=== PATIENT | female | born 1970 | race African-American/Black ===

== ENCOUNTER 2016-09-28 12:08 | Inpatient (IN) | payer BC, OTHER ==
[2016-09-25 14:26] VITALS: BMI 48.0
--- NOTE | 2016-09-28 07:17 | HP ---
History & Physical Update - History History: No Change - Physical Physical: No Change - Assessment Assessment: No Change - Plan Plan: No Change (This is my first time meeting the patient. Introduced myself and informed the patient that I will be assisting Dr. Marcos for the procedure.)
[~2016-09-28 12:08] MED LIST: BUPIVACAINE HCL/PF 0.25% (2.5MG/ML) 10 ML VIAL IJ ONE; CEFAZOLIN 2 GM in DEXTROSE 5%-WATER - 100 ML IVPB ONE; GABAPENTIN 300 MG CAPSULE (FP) PO ONE; oxyCODONE HCL 10 MG SUSTAINED ACTING TABLET PO STA
[2016-09-28] MEDS ORDERED: MIDAZOLAM HCL 2 MG/2 ML SINGLE DOSE VIAL ONE ×2 (13:08)
[2016-09-28] MEDS ORDERED: ROCURONIUM BROMIDE 50 MG/5 ML VIAL ONE (13:24)
[2016-09-28] MEDS ORDERED: BUPIVACAINE HCL/PF 2.5 MG/ML - 30 ML VIAL IJ ONE (13:31)
[2016-09-28] MEDS ORDERED: LIDOCAINE 1%-EPI 1:100,000 30 ML MDV IJ ONE (13:31)
[2016-09-28] MEDS ORDERED: GUM MASTIC/STORAX/MSAL/ALCOHOL 1 DRP DROPSBTL MC ONE (14:22)
[2016-09-28] MEDS ORDERED: PROPOFOL 20 ML ONE ×7 (15:03→16:53)
[2016-09-28] MEDS ORDERED: ONDANSETRON 4 MG/2 ML VIAL IVPUSH PRN (15:41)
[2016-09-28] MEDS ORDERED: BUPIVACAINE HCL/PF 0.25% (2.5MG/ML) 10 ML VIAL IJ ONE (17:25)
--- NOTE | 2016-09-28 17:31 | OP ---
Operative Note - Note: Operative Date: 09/28/16 Pre-Operative Diagnosis: Spondylolithesis L4-L5 Operation: Transforaminal Lumbar interbody fusion/decompression/instrumentation L4-L5, allograft implant and neuromonitoring Post-Operative Diagnosis: Same as Pre-op Surgeon: Isai Marcos Editor Publications: Leif Moser Anesthesiologist/FLOOR RENOVATOR: Miguel Grant Anesthesia: General Specimens Removed: L4-L5 disc Estimated Blood Loss (mls): 50 Drains & Tubes with Location: Hemovac (lumbar region) Fluid Volume Replaced (mls): 1,500 Operative Report Dictated: Yes
--- NOTE | 2016-09-28 17:31 | SURG ---
Surgery Portal Developer Note Portal Developer: Leif Moser PA-C Date of Service: 09/28/16 Diagnosis: Spondylolithesis Procedure: Transforaminal Lumbar interbody fusion/decompression/instrumentation, allograft implant and neuromonitoring I was present for the entirety of the operative procedure. For further detail, please refer to operative report. Visit type - Case Type Case Type: Scheduled Admission - New patient This patient is new to me today: Yes Date on this admission: 09/28/16
[2016-09-28] MEDS ORDERED: ONDANSETRON 4 MG/2 ML VIAL IVPB PRN (17:32)
[2016-09-28] MEDS ORDERED: morphine CARPU-JECT 4 MG/1 ML DISP.SYRIN IVPUSH PRN (17:32)
[2016-09-28] MEDS ORDERED: oxyCODONE HCL 5 MG TABLET PO PRN (17:32)
[2016-09-28] MEDS ORDERED: LACTATED RINGERS SOLUTION 1,000 ML IV SCH (17:45)
[2016-09-28] MEDS ORDERED: CEFAZOLIN 2 GM/D5W 50 ML IVPB SCH (18:00)
[2016-09-28] MEDS: CYCLOBENZAPRINE HCL 10 MG TABLET (FP) PO PRN (18:35)
[2016-09-28] MEDS: GABAPENTIN 100 MG CAPSULE (FP) PO SCH (21:29)
[2016-09-28] MEDS: oxyCODONE HCL 5 MG TABLET PO PRN (21:33)
[2016-09-28] MEDS: CEFAZOLIN 2 GM/D5W 50 ML IVPB SCH (22:22)
[2016-09-29] MEDS: CEFAZOLIN 2 GM/D5W 50 ML IVPB SCH (06:21)
[2016-09-29] MEDS: CYCLOBENZAPRINE HCL 10 MG TABLET (FP) PO PRN (06:22)
[2016-09-29] MEDS: GABAPENTIN 100 MG CAPSULE (FP) PO SCH (06:22)
[2016-09-29 06:45] VITALS: BP 132/81; PULSE 74; TEMP 98.7
[2016-09-29] MEDS: oxyCODONE HCL 5 MG TABLET PO PRN (06:47)
--- NOTE | 2016-09-29 07:27 | OP ---
DATE OF OPERATION: 09/28/2016 PREOPERATIVE DIAGNOSES: 1. Spinal stenosis, L4-L5. 2. Spondylolisthesis, L4-L5. POSTOPERATIVE DIAGNOSES: 1. Spinal stenosis, L4-L5. 2. Spondylolisthesis, L4-L5. PROCEDURE PERFORMED: 1. Transforaminal lumbar interbody fusion, L4-L5. 2. Placement of prosthetic cage. 3. Placement of instrumentation. 4. Hemilaminectomy. SURGEON: Isai Marcos MD DOG RACES MANAGER: JACQUE Gil ESTIMATED BLOOD LOSS: 50 mL. INTRAVENOUS FLUIDS: Per Anesthesia. COMPLICATIONS: None. DISPOSITION: Patient brought to the PACU in stable condition. INDICATIONS: The patient is a 45-year-old female who has been suffering from pain from her back down her legs. X-rays and MRI were completed, which noted she had a spondylolisthesis at L4-L5 contributing to stenosis at that level. She had gone through an exhaustive course of treatment for this which included medications, physical therapy, as well as injections. Unfortunately, pain continued to persist despite all this. At this point, risks, benefits, and alternatives were discussed, and the patient consented to surgery. OPERATIVE NOTE: Patient was brought to the operating room by the Anesthesia staff. After appropriate patient identification was performed, general anesthesia was administered. Neuromonitoring leads were attached. She was placed prone onto the OR table with all areas of bony prominences well-padded at this time. The C-arm was brought in, and the L4 and L5 pedicles were marked off. Lidocaine, 10 mL, with epinephrine was injected into her back at this time. Her back was prepped and draped in a sterile manner. At this point, a time-out was completed. Two incisions were made bilaterally over the L4 and L5 pedicles. Dissection was carried down to the fascia. Fascia was split at this time. The C-arm was brought in, and under C-arm guidance, trocars were advanced into both the L4 and L5 pedicles. The trocar wires inserted. Over the wires, tap was performed and the screws were inserted. On the left-hand side, retractor blades were set up to expose the L4-L5 facet joint. It was removed with a bur and osteotome. The disc was entered using a series of pituitary and Kerrison rongeurs and curettes. After discectomy was completed, bone graft was laid down, and a cage was measured and placed in. Hemilaminectomy was completed at this time. Over the screw heads, tulips were placed. The waqar was measured and placed in. Compression was applied. On the right-hand side, a waqar was measured and placed in. Caps were placed on. Final tightening was performed. All extra instrumentation was removed at this time. AP and lateral x-rays confirmed instrumentation to be in good position. The subcutaneous tissues were closed with 2-0 Vicryl suture. Skin was closed with krystal. Dermabond was applied. A drain was applied. Sterile dressings were applied. The patient was placed supine on the OR bed, extubated in the OR, and brought to the PACU in stable condition. It should be noted that patient was able to flex/ex her toes in the operating room. ISAI MARCOS M.D. VIRY/[id number] MTDD
--- NOTE | 2016-09-29 07:32 | DS ---
[id number] in her lower back. No numbness or tingling. OBJECTIVE: Vital Signs Temperature 98.7 F 09/29/16 06:00 Pulse Rate 74 09/29/16 06:00 Respiratory Rate 18 09/29/16 06:00 Blood Pressure 132/81 09/29/16 06:00 O2 Sat by Pulse Oximetry (%) 99 09/29/16 06:00 ALEXEY-235ml serosangrenous PHYSICAL EXAM GENERAL: The patient is awake, alert, and fully oriented, in no acute distress. LUNGS: Breath sounds equal, clear to auscultation bilaterally, no wheezes, no crackles, no accessory muscle use. HEART: Regular rate and rhythm, S1, S2 without murmur, rub or gallop. ABDOMEN: Soft, nontender, nondistended, normoactive bowel sounds. EXTREMITIES: 2+ pulses, warm, well-perfused, no edema. SCD in place and no calf tenderness b/l BACK: Inc c/d/i with krystal. No evidence of ecchymosis, swelling, remains soft. ALEXEY removed intact. 4x4 and tegaderm dressing reapplied. NEUROLOGICAL: Normal speech. 5/5 dorsi/plantar/EHL flexion b/l. PSYCH: Normal mood, normal affect. LABS HOSPITAL COURSE: Date of Admission:09/28/16 Date of Discharge: 09/29/16 The patient was admitted to the Med-Surg Unit after an elective repair of their spondylolisthesis Now, s/p L4-l5 posterior lumbar fusion. The day of surgery, the patient ambulated the hallways with assistance. Narcotic and non-narcotic pain management control was achieved with an oral and IV approach. POD #1, the surgical drain was removed fully intact and without incident. An xray was obtained and confirmed hardware placement at L4-L5, no fractures or dislocations. Bhavani-operative IV ABX were administered. DVT prophylaxis was achieved with SCDs and early ambulation. The patient ambulated with Physical Therapy and no services were recommended upon discharge. Narcotic scripts and or muscle relaxants were checked with [facility] MAINTENANCE MECHANIC TECHNICIAN prior to escibe. The discharge instructions and an oral pain management plan were reviewed with the patient. All questions answered. Above plan discussed with Dr. Marcos and agreed. Minutes to complete discharge: 20 <Leticia Polo - Last Filed: 10/12/16 13:51> Physical Exam: SUBJECTIVE: Patient seen and examined OBJECTIVE: Vital Signs Temperature 98.7 F 09/29/16 06:00 Pulse Rate 74 09/29/16 06:00 Respiratory Rate 18 09/29/16 06:00 Blood Pressure 132/81 09/29/16 06:00 O2 Sat by Pulse Oximetry (%) 99 09/29/16 06:00 PHYSICAL EXAM GENERAL: The patient is awake, alert, and fully oriented, in no acute distress. HEAD: Normal with no signs of trauma. EYES: PERRL, extraocular movements intact, sclera anicteric, conjunctiva clear. ENT: Ears normal, nares patent, oropharynx clear without exudates, moist mucous membranes. NECK: Trachea midline, full range of motion, supple. LUNGS: Breath sounds equal, clear to auscultation bilaterally, no wheezes, no crackles, no accessory muscle use. HEART: Regular rate and rhythm, S1, S2 without murmur, rub or gallop. ABDOMEN: Soft, nontender, nondistended, normoactive bowel sounds, no guarding, no rebound, no hepatosplenomegaly, no masses. EXTREMITIES: 2+ pulses, warm, well-perfused, no edema. NEUROLOGICAL: Cranial nerves II through XII grossly intact. Normal speech, gait not observed. PSYCH: Normal mood, normal affect. SKIN: Warm, dry, normal turgor, no rashes or lesions noted. LABS CBC,CMP WBC 11.7 K/mm3 (4.0-10.0) H 09/29/16 08:09 RBC 4.29 M/mm3 (3.60-5.2) 09/29/16 08:09 Hgb 12.5 GM/dl (10.7-15.3) 09/29/16 08:09 Hct 38.0 % (32.4-45.2) 09/29/16 08:09 MCV 88.6 fl (80-96) 09/29/16 08:09 MCHC 32.8 g/dl (32.0-36.0) 09/29/16 08:09 RDW 12.6 % (11.6-15.6) 09/29/16 08:09 Plt Count 242 K/MM3 (134-434) 09/29/16 08:09 MPV 8.6 fl (7.5-11.1) 09/29/16 08:09 Sodium 135 mmol/L (136-145) L 09/29/16 08:09 Potassium 3.9 mmol/L (3.5-5.1) 09/29/16 08:09 Chloride 99 mmol/L (98-107) 09/29/16 08:09 Carbon Dioxide 27 mmol/L (22-28) 09/29/16 08:09 Anion Gap 9 (8-16) 09/29/16 08:09 BUN 11 mg/dl (7-18) 09/29/16 08:09 Creatinine 0.9 mg/dl (0.6-1.3) 09/29/16 08:09 Random Glucose 115 mg/dl (74-106) H 09/29/16 08:09 Calcium 9.5 mg/dl (8.4-10.2) 09/29/16 08:09 HOSPITAL COURSE: Date of Admission:09/28/16 Date of Discharge: 10/16/16 The patient was admitted to the Med-Surg Unit after an elective repair of their (spondylolisthesis). Now, s/p ( lumbar decompression and fusion). The day of surgery, the patient ambulated the hallways with assistance. Narcotic and non-narcotic pain management control was achieved with an oral and IV approach. POD #1, the surgical drain was removed fully intact and without incident. An xray was obtained and confirmed hardware placement at (level of ), no fractures or dislocations. Bhavani-operative IV ABX were administered. DVT prophylaxis was achieved with SCDs and early ambulation. The patient ambulated with Physical Therapy and no services were recommended upon discharge. Narcotic scripts and or muscle relaxants were checked with [place] MAINTENANCE MECHANIC TECHNICIAN prior to escibe. The discharge instructions and an oral pain management plan were reviewed with the patient. All questions answered. Above plan discussed with Dr. Marcos and agreed. Patient seen and examined Agree with Above OOB PT D/C Planning <Isai Marcos - Last Filed: 10/16/16 10:42> Visit type - Case Type Case Type: Scheduled Admission - Emergency Emergency Visit: No - New patient This patient is new to me today: Yes Date on this admission: 10/12/16 - Critical Care Critical Care patient: No <Leticia Polo - Last Filed: 10/12/16 13:51>
[2016-09-29 08:30] LABS: MCHC 32.8 g/dl (32.0-36.0); MEAN CELL VOLUME 88.6 fl (80-96); MEAN PLT VOLUME 8.6 fl (7.5-11.1); PLATELET COUNT 242 K/MM3 (134-434); RDW 12.6 % (11.6-15.6); WHITE BLOOD COUNT 11.7 K/mm3 (4.0-10.0)
[2016-09-29 09:16] LABS: CALCIUM 9.5 mg/dl (8.4-10.2); CREATININE 0.9 mg/dl (0.6-1.3)
[2016-09-29] MEDS ORDERED: PT OWN MED DRAWER 7, Y5N ONE (09:18)
[2016-09-29] MEDS ORDERED: VITAMIN B COMPLEX W/C COMBO TABLET (FP) PO SCH (10:00)
[2016-09-29] MEDS ORDERED: CHOLECALCIFEROL (VITAMIN D3) 400 UNIT TABLET (FP) PO SCH (10:00)
[2016-09-29] MEDS ORDERED: MULTIVITAMINS (DAILY MVI) TABLET (FP) PO SCH (10:00)
--- NOTE | 2016-09-29 10:25 | PN ---
Progress Note, Physician Chief Complaint: s/p spinal fusion post op day one History of Present Illness: under general anesthesia - Current Medication List Current Medications: Active Medications Cholecalciferol (Vitamin D3 -) 800 unit PO DAILY [facility] Last Admin: 09/29/16 09:20 Dose: 800 unit Cyclobenzaprine HCl (Flexeril -) 10 mg PO Q8H PRN PRN Reason: MUSCLE SPASMS Stop: 09/29/16 17:31 Last Admin: 09/29/16 06:22 Dose: 10 mg Fentanyl (Sublimaze Injection -) 50 mcg IVPUSH [id number] PRN PRN Reason: PAIN Stop: 10/01/16 15:41 Last Admin: 09/28/16 17:55 Dose: 50 mcg Gabapentin (Neurontin -) 100 mg PO TID [facility] Last Admin: 09/29/16 06:22 Dose: 100 mg Cefazolin Sodium/Dextrose (Ancef 2 Gm Premixed Ivpb -) 50 mls @ 200 mls/hr IVPB 0600,1400,2200 [facility] Stop: 09/29/16 21:59 Last Admin: 09/29/16 06:21 Dose: 200 mls/hr Morphine Sulfate (Morphine Injection -) 4 mg IVPUSH Q4H PRN PRN Reason: PAIN Multivitamins (Total B With C -) 1 each PO DAILY [facility] Last Admin: 09/29/16 09:20 Dose: 1 each Multivitamins/Minerals/Vitamin C (Tab-A-Vit -) 1 tab PO DAILY [facility] Last Admin: 09/29/16 09:20 Dose: 1 tab Ondansetron HCl (Zofran Injection) 4 mg IVPB Q6H PRN PRN Reason: NAUSEA AND/OR VOMITING Oxycodone HCl (Roxicodone -) 5 mg PO Q4H PRN PRN Reason: PAIN Last Admin: 09/29/16 06:47 Dose: 5 mg Oxycodone HCl (Roxicodone -) 10 mg PO Q4H PRN PRN Reason: PAIN - Objective Vital Signs: Vital Signs Temperature 98.7 F 09/29/16 06:00 Pulse Rate 74 09/29/16 06:00 Respiratory Rate 18 09/29/16 06:00 Blood Pressure 132/81 09/29/16 06:00 O2 Sat by Pulse Oximetry (%) 99 09/29/16 06:00 Constitutional: Yes: Well Nourished Cardiovascular: Yes: WNL Respiratory: Yes: WNL Gastrointestinal: Yes: WNL Neurological: Yes: WNL Labs: CBC, BMP 09/29/16 08:09 09/29/16 08:09 Assessment/Plan no adverse effect of anesthetic, pain controlled, dept of anesthesia will sign off care at this time
== END 2016-09-29 14:32 | disposition home or self-care (01) | DRG 460 ==
LOC: FM/S 12:08
PROVIDERS: ADMIT Orthopaedic Surgery Orthopaedic Surgery of the Spine; ATTEND Orthopaedic Surgery Orthopaedic Surgery of the Spine
PROC: 0SB20ZZ Excision of Lumbar Vertebral Disc, Open Approach (ICD-10-PCS; 2016-09-28)
PROC: 0SG00AJ Fusion of Lumbar Vertebral Joint with Interbody Fusion Device, Posterior Approach, Anterior Column, Open Approach (ICD-10-PCS; principal; 2016-09-28 14:00)
DX: M43.16 Spondylolisthesis, lumbar region (principal); M48.06 Spinal stenosis, lumbar region
CPT/HCPCS: 36415; 72100-TC; 76001-TC; 80048; 84703; 85027; 94010; 94760; 97116-GP; 97161-GP